=== PATIENT | female | born 1975 | race Caucasian/White ===

== ENCOUNTER 2017-05-14 13:00 | Inpatient (IN) | payer BC, OTHER ==
[2017-05-14 13:51] LABS: BASOPHIL 0.5 % (0-2.0); MCH 31.1 pg (25.7-33.7); MCHC 34.2 g/dl (32.0-36.0); MEAN PLT VOLUME 9.4 fl (7.5-11.1); NEUTROPHILS 78.7 % (42.8-82.8); PLATELET COUNT 207 K/MM3 (134-434); RDW 13.3 % (11.6-15.6); WHITE BLOOD COUNT 10.3 K/mm3 (4.0-10.0)
[2017-05-14 14:06] LABS: ALBUMIN 2.3 g/dl (3.4-5.0); ALK PHOS 134 U/L (45-117); ANION GAP 12 (8-16); BILIRUBIN,TOTAL 0.4 mg/dL (0.2-1.0); CO2 21 mmol/L (21-32); CREATININE 0.6 mg/dL (0.55-1.02); GLUCOSE,RANDOM 144 mg/dL (74-106); SGOT/AST 14 U/L (15-37); SGPT/ALT 13 U/L (12-78); TOT PROT 5.4 g/dl (6.4-8.2); URIC ACID 3.4 mg/dL (2.6-7.2)
[2017-05-14 14:31] LABS: URINE APPEARANCE SLCLOUDY; URINE BILIRUBIN NEGATIVE (NEGATIVE); URINE BLOOD NEGATIVE (NEGATIVE); URINE COLOR YELLOW; URINE GLUCOSE (UA) NEGATIVE (NEGATIVE); URINE KETONE TRACE (NEGATIVE); URINE LEUK ESTERASE NEGATIVE (NEGATIVE); URINE NITRITE NEGATIVE (NEGATIVE); URINE PROTEIN NEGATIVE (NEGATIVE); URINE UROBILINOGEN NEGATIVE mg/dL (0.2-1.0)
[2017-05-14 14:45] VITALS: BMI 31.3
[2017-05-14] MEDS ORDERED: TUBERCULIN PPD 5 TU/0.1ML SYRINGE (IN PATIENT USE ONLY) ID ONE (15:44)
[2017-05-14] MEDS ORDERED: DINOPROSTONE 10 MG VAGINAL SUPPOSITORY VG ONE (16:07)
--- NOTE | 2017-05-14 16:11 | PN ---
Progress Note (short form) - Note Progress Note: cx closed vx -3 mi , fhr cat 1 , no contraction, cervidil rba discussed . cervidil inserted at 415 pm
--- NOTE | 2017-05-14 16:17 | HP ---
Past Medical History - Primary Care Physician PCP:: Dieudonne Galvin - Admission Chief Complaint: 40.2 weeks,gestational HTN, AMA, obesity History of Present Illness: 41 yo f g 1 po with gestational HTN, obesity, hypothyroidism, AMA. referred by DR Talavera for cervidil induction, no pain, no head ache or blurred vision . rba to cervidil discussed History Source: Patient Limitations to Obtaining History: No Limitations - Past Medical History ...: 2 ...Para: 0 ...Term: 0 ...: 0 ...Spon : 1 ...Induced : 0 ...Multiple Gestation: 0 ...EDC by Sono: 05/12/17 Additional OB History: one spont ab Endocrine: Yes: Hypothyroidism - Past Surgical History Hx Myomectomy: No Hx Transabdominal Cerclage: No - Smoking History Smoking history: Former smoker Have you smoked in the past 12 months: No Aproximately how many cigarettes per day: 10 If you are a former smoker, when did you quit?: 1 MELISSA AGO - Alcohol/Substance Use Hx Alcohol Use: No - Social History Usual Living Arrangement: Yes: With Spouse History of Recent Travel: No Home Medications - Allergies Allergies/Adverse Reactions: Allergies Allergy/AdvReac Type Severity Reaction Status Date / Time erythromycin lactobionate Allergy Vomiting Verified 05/14/17 13:56 [From Erythrocin] - Home Medications Home Medications: Ambulatory Orders Levothyroxine [Synthroid -] 1 tab PO DAILY 05/14/17 Vit #108/Iron/FA [ One Tablet] 1 tab PO DAILY 05/14/17 Vitamin D - 1 tab PO DAILY 05/14/17 Review of Systems - Review of Systems Constitutional: reports: No Symptoms Eyes: reports: No Symptoms HENT: reports: No Symptoms Neck: reports: No Symptoms Cardiovascular: reports: No Symptoms Respiratory: reports: No Symptoms Gastrointestinal: reports: No Symptoms Genitourinary: reports: No Symptoms Breasts: reports: No Symptoms Reported Musculoskeletal: reports: No Symptoms Integumentary: reports: No Symptoms Physical Exam - Maternity Vital Signs: Vital Signs Temperature 98.1 F 05/14/17 13:48 Pulse Rate 99 H 05/14/17 15:00 Respiratory Rate 05/14/17 15:00 Blood Pressure 124/96 05/14/17 15:00 O2 Sat by Pulse Oximetry (%) - Labs Lab Results: CBC, BMP 05/14/17 13:25 05/14/17 13:25 Hemorrhage Risk Assessment - Risk Factors High Risk Factors: Yes: None Risk Score: 0 Risk Level: Low Risk Problem List - Problems (1) Post term over 40 weeks Code(s): O48.0 - POST-TERM (2) Gestational hypertension Code(s): O13.9 - GESTATIONAL HTN W/O SIGNIFICANT PROTEINURIA, UNSP TRIMESTER Qualifiers: Trimester: third trimester Qualified Code(s): O13.3 - Gestational [ -induced] hypertension without significant proteinuria, third trimester (3) Advanced maternal age during Code(s): [id number] - (4) Hypothyroidism Code(s): E03.9 - HYPOTHYROIDISM, UNSPECIFIED Qualifiers: Hypothyroidism type: unspecified Qualified Code(s): E03.9 - Hypothyroidism, unspecified Assessment/Plan admit forcervidil induction , rba discussed
[2017-05-14 17:25] LABS: INR 0.87 (0.82-1.09); PROTHROMBIN TIME (PATIENT) 9.5 SEC (9.98-11.88)
[2017-05-14 17:27] LABS: ACTIVATED PTT 29.7 SECONDS (26.9-34.4)
[2017-05-14] MEDS ORDERED: PROMETHAZINE HCL 25 MG/1 ML VIAL IVPUSH ONE (21:23)
[2017-05-14] MEDS ORDERED: BUTORPHANOL TARTRATE 1 MG/ML VIAL IVPUSH PRN (21:23)
[2017-05-15] MEDS ORDERED: DEXTROSE 5%-LACTATED RINGERS 1,000 ML IV ONE (05:05)
[2017-05-15] MEDS ORDERED: LEVOTHYROXINE NA 25 MCG TABLET (FP) PO SCH (07:00)
[2017-05-15] MEDS ORDERED: OXYTOCIN 15 UNITS/ LR 250 ML 250 ML IVPB SCH (08:30)
--- NOTE | 2017-05-15 08:48 | PN ---
Progress Note (short form) - Note Progress Note: cx closed 50 vx , -3 mi, fht cat 1, irregulat contraction, pitocin rba discussed , agreed Problem List - Problems (1) Post term over 40 weeks Code(s): O48.0 - POST-TERM (2) Gestational hypertension Code(s): O13.9 - GESTATIONAL HTN W/O SIGNIFICANT PROTEINURIA, UNSP TRIMESTER Qualifiers: Trimester: third trimester Qualified Code(s): O13.3 - Gestational [ -induced] hypertension without significant proteinuria, third trimester (3) Advanced maternal age during Code(s): [id number] - (4) Hypothyroidism Code(s): E03.9 - HYPOTHYROIDISM, UNSPECIFIED Qualifiers: Hypothyroidism type: unspecified Qualified Code(s): E03.9 - Hypothyroidism, unspecified
[2017-05-15] MEDS: ELECTROLYTE-148 SOLN 1,000 ML IV SCH ×2 (12:00→18:12)
--- NOTE | 2017-05-15 18:01 | PN ---
Progress Note (short form) - Note Progress Note: 41 yo P0 @ 40.2wks induced due to gestational HTN, obesity, hypothyroidism, AMA, she had no complains of FHR 140s Category 1, + accelerations, No decelerations TOCO Q2=3min contractions VE: L/C/P Currently on 18mU/min Pitocin Further options discussed with patient: rest with possibly using another Prostaglandin if contractions resolve vs. continuing further with Pitocin Patient declines further LUL, requesting c/s Risks of c/section including bowel, bladder, vessels injury, greater blood loss discussed with patient She fully understands, consent signed anethesia aware IV Abx for wound infection prophylaxis
[2017-05-15] MEDS ORDERED: CITRIC ACID/SODIUM CITRATE 30 ML UNIT-DOSE CUP PO ONE (18:32)
[2017-05-15] MEDS ORDERED: ONDANSETRON 4 MG/2 ML VIAL IVPB PRN (21:14)
[2017-05-15] MEDS ORDERED: WITCH HAZEL 50% (TUCKS) 40 PAD/JAR PAD TP PRN (21:25)
[2017-05-15] MEDS ORDERED: METHYLERGONOVINE MALEATE 0.2 MG/1 ML AMP IM PRN (21:25)
[2017-05-15] MEDS ORDERED: IBUPROFEN 800 MG/8 ML IJ IVPB PRN (21:25)
[2017-05-15] MEDS ORDERED: BENZOCAINE 20% 57 GM BOTTLE TP PRN (21:25)
[2017-05-15] MEDS ORDERED: diphenhydrAMINE HCL 25 MG CAPSULE (FP) PO PRN (21:25)
[2017-05-15] MEDS ORDERED: SIMETHICONE 80 MG TAB.CHEW (FP) PO PRN (21:25)
[2017-05-15] MEDS ORDERED: IBUPROFEN 600 MG TABLET (FP) PO PRN (21:25)
[2017-05-15] MEDS ORDERED: oxyCODONE HCL 5 MG TABLET PO PRN ×2 (21:25)
[2017-05-15] MEDS ORDERED: BENZOCAINE 28 GM HEMORRHOIDAL OINTMENT PR PRN (21:25)
[2017-05-15] MEDS ORDERED: OXYTOCIN 20 UNITS in 0.9% NS 1,000 ML IV SCH (21:30)
[2017-05-15] MEDS ORDERED: DEXTROSE 5%-LACTATED RINGERS 1,000 ML IV SCH (21:30)
--- NOTE | 2017-05-15 21:35 | OP ---
Operative Note - Note: Operative Date: 05/15/17 Pre-Operative Diagnosis: 41 yo P0 @ 40.2 wks failed induction, gestational HTN, AMA, obesity, Hypothyrodism Operation: Primary Low Segment Transverse C/Section Findings: 1.Uterine inversion during placental delivery, likely due to delayed cord clamping and Cord blood collection I was able to reposition the uterus and repair in 2 layers without difficulty 2. Viable female APGARs 9/9, LOT position, 9.4lb 3. Normal maternal tubes and ovaries Post-Operative Diagnosis: Same as Pre-op Surgeon: Eboni Luther Zig Zag Stitcher: Zak Christy Anesthesia: Spinal Specimens Removed: Placenta. Viable female, APGARs 9/9, 9.4lb Estimated Blood Loss (mls): 1,000 Drains, Volume Out (mls): 100 Fluid Volume Replaced (mls): 1,500 Operative Report Dictated: Yes
--- NOTE | 2017-05-15 22:04 | PN ---
Delivery - Delivery Section: Primary, Low Flap Transverse Type of Anesthesia: Spinal Episiotomy/Laceration: None EBL (cc): 1,000 Delivery, Single - Stages of Labor Date 1st Stage Initiatied: 05/15/17 Date of Delivery: 05/15/17 Time of Delivery: 19:59 Date Placenta Delivered: 05/15/17 Time Placenta Delivered: 20:02 Placenta: Yes: Uterine Exploration (Uterine inversion) - Condition of Infant Cloak Room Attendant/Pharmaceutical Salesperson Present: Yes Name: Otto Choi Infant Gender: Female Weight: 9 lb 4 oz Position: Left, OT Total Hours ROM (Hrs/Mins): 3m - 1 Minute Total Score: 9 5 Minutes Total Score: 9 - [place] Feeding Plan Initial Plan: Exclusive throughout hospitalization Remarks - Remarks Remarks: See Op Note
[2017-05-15 23:33] LABS: BASOPHIL 0.2 % (0-2.0); EOSINOPHIL 0.2 % (0-4.5); MCH 30.8 pg (25.7-33.7); MCHC 33.6 g/dl (32.0-36.0); MEAN CELL VOLUME 91.7 fl (80-96); MEAN PLT VOLUME 9.2 fl (7.5-11.1); NEUTROPHILS 83.2 % (42.8-82.8); PLATELET COUNT 201 K/MM3 (134-434); RDW 13.2 % (11.6-15.6); WHITE BLOOD COUNT 11.9 K/mm3 (4.0-10.0)
[2017-05-16 00:02] LABS: ALK PHOS 112 U/L (45-117); ANION GAP 10 (8-16); BILIRUBIN,TOTAL 0.6 mg/dL (0.2-1.0); CALCIUM 8.5 mg/dL (8.5-10.1); CO2 24 mmol/L (21-32); CREATININE 0.6 mg/dL (0.55-1.02); GLUCOSE,RANDOM 91 mg/dL (74-106); SGOT/AST 16 U/L (15-37); SGPT/ALT 10 U/L (12-78); TOT PROT 4.7 g/dl (6.4-8.2)
[2017-05-16 00:35] LABS: FREE T4 1.08 ng/dl (0.76-1.46); THYROID STIMULATING HORMONE 3.47 uIU/ml (0.358-3.74)
[2017-05-16] MEDS: CEFAZOLIN (PRE-DOCKED) 50 ML IVPB SCH ×3 (02:00→17:49)
[2017-05-16] MEDS ORDERED: CEFAZOLIN 1 GM/D5W 50 ML IVPB SCH (02:00)
--- NOTE | 2017-05-16 08:05 | PN ---
Post Progress Note - Subjective Subjective: 41 yo P1 now, s/p 1 LST c/s phillip failed induction induced for gestational HTN at term, obesity, Hypothyroidism denies MELTON, visual disturbance, pain well controlled, no flatus yet No palpitations, no dizziness attempting BF Post Day: 1 Type of Delivery: Primary C/S Vital Signs: Vital Signs Temperature 98.0 F 05/16/17 06:00 Pulse Rate 90 05/16/17 06:00 Respiratory Rate 18 05/16/17 06:00 Blood Pressure 134/85 05/16/17 06:00 O2 Sat by Pulse Oximetry (%) 100 05/15/17 23:15 Breast Exam: Yes: Soft Uterus: Yes: Fundus Firm Incision: Yes: Dressing dry and intact Abdomen/GI: Yes: Abdomen soft Lochia: Yes: Rubra Lochia, amount: Small Extremities: Yes: Calves non-tender - Labs Labs: CBC WBC 11.9 K/mm3 (4.0-10.0) H 05/15/17 23:10 RBC 3.76 M/mm3 (3.60-5.2) 05/15/17 23:10 Hgb 11.6 GM/dL (10.7-15.3) D 05/15/17 23:10 Hct 34.5 % (32.4-45.2) 05/15/17 23:10 MCV 91.7 fl (80-96) 05/15/17 23:10 MCH 30.8 pg (25.7-33.7) 05/15/17 23:10 MCHC 33.6 g/dl (32.0-36.0) 05/15/17 23:10 RDW 13.2 % (11.6-15.6) 05/15/17 23:10 Plt Count 201 K/MM3 (134-434) 05/15/17 23:10 MPV 9.2 fl (7.5-11.1) 05/15/17 23:10 Neutrophils % 83.2 % (42.8-82.8) H 05/15/17 23:10 Lymphocytes % 10.9 % (8-40) D 05/15/17 23:10 Monocytes % 5.5 % (3.8-10.2) 05/15/17 23:10 Eosinophils % 0.2 % (0-4.5) 05/15/17 23:10 Basophils % 0.2 % (0-2.0) 05/15/17 23:10 Retic Count 1.59 % (0.5-1.5) H 05/14/17 13:25 Haptoglobin 100 mg/dL (34-200) 05/14/17 13:25 Assessment/Plan 41yo P 1 s/p 1 LST c/s mild PPH, uterine inversion VSS, Afibrire, h/h stable overnight TSH normal no need for Synthroid now Now s/s of PEC, BPs wnl cont. routine PP care [place] ambulation
[2017-05-16 08:34] LABS: BASOPHIL 0.4 % (0-2.0); EOSINOPHIL 0.6 % (0-4.5); MCH 30.9 pg (25.7-33.7); MCHC 33.8 g/dl (32.0-36.0); MEAN CELL VOLUME 91.4 fl (80-96); MEAN PLT VOLUME 8.9 fl (7.5-11.1); NEUTROPHILS 73.1 % (42.8-82.8); PLATELET COUNT 178 K/MM3 (134-434); RDW 13.3 % (11.6-15.6); WHITE BLOOD COUNT 8.9 K/mm3 (4.0-10.0)
[2017-05-16] MEDS ORDERED: DIPHTH,PERTUSS(ACELL),TET 0.5 ML DISP.SYRIN IM ONE (10:00)
[2017-05-16] MEDS: ELECTROLYTE-148 SOLN 1,000 ML IV SCH (18:24)
[2017-05-16] MEDS ORDERED: NIFEdipine E.R. 30 MG TABLET (FP) PO ONE (20:00)
[2017-05-16] MEDS ORDERED: BISACODYL 10 MG SUPP.RECT RC PRN (21:25)
--- NOTE | 2017-05-17 07:33 | PN ---
Progress Note (short form) - Note Progress Note: PATIENT IS STATUS POST PRIMARY C SECTION POST OP DAY ONE PATIENT RECEIVED SPINAL ANESTHESIA WITH DURAMORPH FOR POST OP PAIN CONTROL SHE IS IN ACUTE DISTRESS, PAIN UNDER CONTROL, MOTOR BLOCKADE HAS SUBSIDED, NO FURTHER INTERVENTIONS BY THE ANESTHESIOLOGY DEPT
[2017-05-17 08:23] LABS: BASOPHIL 0.4 % (0-2.0); EOSINOPHIL 0.9 % (0-4.5); MCH 31.7 pg (25.7-33.7); MCHC 34.6 g/dl (32.0-36.0); MEAN CELL VOLUME 91.7 fl (80-96); MEAN PLT VOLUME 9.1 fl (7.5-11.1); NEUTROPHILS 83.2 % (42.8-82.8); PLATELET COUNT 211 K/MM3 (134-434); RDW 13.1 % (11.6-15.6); WHITE BLOOD COUNT 11.3 K/mm3 (4.0-10.0)
[2017-05-17 08:48] LABS: ALBUMIN 2.1 g/dl (3.4-5.0); ANION GAP 8 (8-16); BILIRUBIN,DIRECT 0.2 mg/dL (0.0-0.2); CALCIUM 8.8 mg/dL (8.5-10.1); CO2 24 mmol/L (21-32); CREATININE 0.4 mg/dL (0.55-1.02); GLUCOSE,RANDOM 84 mg/dL (74-106); SGOT/AST 24 U/L (15-37); SGPT/ALT 15 U/L (12-78)
[2017-05-17 08:50] LABS: ALK PHOS 111 U/L (45-117); BILIRUBIN,TOTAL 0.4 mg/dL (0.2-1.0); TOT PROT 4.9 g/dl (6.4-8.2)
[2017-05-17] MEDS: NIFEdipine E.R. 30 MG TABLET (FP) PO SCH (12:00)
--- NOTE | 2017-05-17 14:18 | PN ---
Post Progress Note - Subjective Subjective: 41 yo P1 now, s/p 1' C/S No complains: no MELTON, No visual changes, no RUQ pain, + flatus, incisional pain controlled Post Day: 2 Type of Delivery: Primary C/S Vital Signs: Vital Signs Temperature 98.8 F 05/17/17 13:53 Pulse Rate 100 H 05/17/17 13:53 Respiratory Rate 18 05/17/17 13:53 Blood Pressure 141/96 05/17/17 13:53 O2 Sat by Pulse Oximetry (%) 100 05/15/17 23:15 Breast Exam: Yes: Soft Uterus: Yes: Fundus Firm, Fundus @ umbilicus, Non-tender Incision: Yes: Sutures intact Abdomen/GI: Yes: Abdomen soft Lochia: Yes: Rubra Lochia, amount: Small Extremities: Yes: Calves non-tender - Labs Labs: CBC WBC 11.3 K/mm3 (4.0-10.0) H 05/17/17 07:30 RBC 3.57 M/mm3 (3.60-5.2) L 05/17/17 07:30 Hgb 11.3 GM/dL (10.7-15.3) 05/17/17 07:30 Hct 32.7 % (32.4-45.2) 05/17/17 07:30 MCV 91.7 fl (80-96) 05/17/17 07:30 MCH 31.7 pg (25.7-33.7) 05/17/17 07:30 MCHC 34.6 g/dl (32.0-36.0) 05/17/17 07:30 RDW 13.1 % (11.6-15.6) 05/17/17 07:30 Plt Count 211 K/MM3 (134-434) 05/17/17 07:30 MPV 9.1 fl (7.5-11.1) 05/17/17 07:30 Neutrophils % 83.2 % (42.8-82.8) H 05/17/17 07:30 Lymphocytes % 9.3 % (8-40) D 05/17/17 07:30 Monocytes % 6.2 % (3.8-10.2) 05/17/17 07:30 Eosinophils % 0.9 % (0-4.5) 05/17/17 07:30 Basophils % 0.4 % (0-2.0) 05/17/17 07:30 Retic Count 1.59 % (0.5-1.5) H 05/14/17 13:25 Haptoglobin 100 mg/dL (34-200) 05/14/17 13:25 Assessment/Plan 41yo P 1 s/p 1 LST c/s mild PPH, uterine inversion VSS, Afibrire, h/h stable TSH normal no need for Synthroid now Will repeat TSH 6wks PP No s/s of PEC, BPs wnl on Procardia 30mg cont. routine PP care [place] ambulation
[2017-05-17] MEDS: SENNOSIDES/DOCUSATE COMBO (SENNA PLUS) TABLET (UD) PO PRN (21:42)
[2017-05-18 07:49] LABS: BASOPHIL 0.5 % (0-2.0); EOSINOPHIL 2.2 % (0-4.5); MCH 31.2 pg (25.7-33.7); MCHC 34.2 g/dl (32.0-36.0); MEAN CELL VOLUME 91.3 fl (80-96); MEAN PLT VOLUME 8.2 fl (7.5-11.1); NEUTROPHILS 74.9 % (42.8-82.8); PLATELET COUNT 206 K/MM3 (134-434); RDW 13.1 % (11.6-15.6); WHITE BLOOD COUNT 8.7 K/mm3 (4.0-10.0)
--- NOTE | 2017-05-18 08:34 | PN ---
Post Progress Note - Subjective Subjective: 41 yo P1 s/p 1' c/section doing well, no MELTON, no visual changes Post Day: 3 Type of Delivery: Primary C/S Vital Signs: Vital Signs Temperature 98.1 F 05/17/17 22:00 Pulse Rate 83 05/18/17 06:00 Respiratory Rate 18 05/18/17 06:00 Blood Pressure 132/93 05/18/17 06:00 O2 Sat by Pulse Oximetry (%) 100 05/15/17 23:15 Breast Exam: Yes: Soft Uterus: Yes: Fundus Firm, Fundus above umbilicus Incision: Yes: Sutures intact Abdomen/GI: Yes: Abdomen soft Lochia: Yes: Rubra Lochia, amount: Small Extremities: Yes: Calves non-tender - Labs Labs: CBC WBC 8.7 K/mm3 (4.0-10.0) 05/18/17 07:18 RBC 3.34 M/mm3 (3.60-5.2) L 05/18/17 07:18 Hgb 10.4 GM/dL (10.7-15.3) L 05/18/17 07:18 Hct 30.5 % (32.4-45.2) L 05/18/17 07:18 MCV 91.3 fl (80-96) 05/18/17 07:18 MCH 31.2 pg (25.7-33.7) 05/18/17 07:18 MCHC 34.2 g/dl (32.0-36.0) 05/18/17 07:18 RDW 13.1 % (11.6-15.6) 05/18/17 07:18 Plt Count 206 K/MM3 (134-434) 05/18/17 07:18 MPV 8.2 fl (7.5-11.1) 05/18/17 07:18 Neutrophils % 74.9 % (42.8-82.8) 05/18/17 07:18 Lymphocytes % 15.3 % (8-40) D 05/18/17 07:18 Monocytes % 7.1 % (3.8-10.2) 05/18/17 07:18 Eosinophils % 2.2 % (0-4.5) D 05/18/17 07:18 Basophils % 0.5 % (0-2.0) 05/18/17 07:18 Retic Count 1.59 % (0.5-1.5) H 05/14/17 13:25 Haptoglobin 100 mg/dL (34-200) 05/14/17 13:25 Assessment/Plan 41yo P 1 s/p 1 LST c/s mild PPH, uterine inversion VSS, Afibrire, h/h stable TSH normal no need for Synthroid now Will repeat TSH 6wks PP No s/s of PEC, BPs wnl on Procardia 30mg cont. routine PP care [place] ambulation
--- NOTE | 2017-05-18 09:16 | OP ---
DATE OF OPERATION: 05/15/2017 PREOPERATIVE DIAGNOSIS: A 41-year-old para 0 at 40 weeks, failed induction, gestational hypertension, advanced maternal age, obesity, and hypothyroidism. POSTOPERATIVE DIAGNOSIS: A 41-year-old para 0 at 40 weeks, failed induction, gestational hypertension, advanced maternal age, obesity, hypothyroidism, and hemorrhage. OPERATION: Primary low segment transverse section. FINDINGS: Viable female, Apgars 9 and 9, left occipitotransverse position, 9 pounds 4 ounces. Normal maternal tubes and ovaries, and uterine inversion during placental delivery likely due to delayed cord clamping and cord blood collection. SURGEON: Eboni Luther MD SHAMPOO TECHNICIAN: ELAINE Williamson ANESTHESIA: Spinal. SPECIMENS REMOVED: Placenta and viable female, Apgars 9 and 9, 9.4 pounds. DESCRIPTION OF THE OPERATIVE PROCEDURE: After showing informed consent, patient was brought to the operating room, placed in dorsal supine position with left lateral tilt. Pfannenstiel incision was made with scalpel, carried down to the level of fascia with Bovie cautery. Fascia incised in the midline and incision carried down bilaterally with Bovie cautery with undermining with Ivet clamps. Kochers were placed inferiorly on the fascial incision, and fascia was dissected downwards with Bovie cautery. Same was accomplished superiorly. Fascia was dissected off the rectus abdominis muscle. Rectus abdominis muscle was split in the midline. Peritoneum was entered bluntly with good visualization of underlying organs. Peritoneum was stretched and retracted with lower edge of the Jeannie. The bladder flap was created with Metzenbaum scissors and retracted with lower edge of the Jeannie. Uterine incision was made with the scalpel and extended bilaterally with bandage scissors. Infant's head delivered atraumatically in left occipitotransverse position. Rest of the body delivered atraumatically. Baby suctioned. Delayed cord clamping was conducted and baby was handed to awaiting pediatricians. Subsequently, the cord blood was collected as per patient's request, and subsequently placenta was attempted to be delivered; however, uterus inverted together with the placenta. Uterus was fitted back inwards and placenta was delivered. Uterine incision was closed without any difficulty in 2 layers of 0 Biosyn, first locking, second imbricating. Uterus was replaced intraabdominally. Excellent hemostasis was noted. Peritoneum was closed with 0 Biosyn. Muscle was reapproximated at the midline with 0 Biosyn. Fascia was closed with 0 Vicryl. The subcutaneous space was closed with 2-0 chromic, and skin was closed with 4-0 Biosyn subcuticular stitch. Estimated blood loss was 1000 mL. Patient drained 100 mL of urine and received 1500 mL of Plasmalyte. Inder [id number]
[2017-05-18] MEDS: NIFEdipine E.R. 30 MG TABLET (FP) PO SCH (10:04)
[2017-05-18] MEDS: SENNOSIDES/DOCUSATE COMBO (SENNA PLUS) TABLET (UD) PO PRN (21:41)
--- NOTE | 2017-05-19 06:01 | DS ---
Physical Exam-RELATIONSHIP CONSULTANT Vital Signs: Vital Signs Temperature 98.1 F 05/18/17 23:00 Pulse Rate 87 05/18/17 23:00 Respiratory Rate 18 05/18/17 23:00 Blood Pressure 129/86 05/18/17 23:00 O2 Sat by Pulse Oximetry (%) 100 05/15/17 23:15 Constitutional: Yes: Well Nourished Eyes: Yes: WNL HENT: Yes: WNL Neck: Yes: WNL Cardiovascular: Yes: Regular Rate and Rhythm Respiratory: Yes: CTA Bilaterally Gastrointestinal: Yes: Normal Bowel Sounds, Soft External Genitalia: Yes: Normal Vaginal Exam: Yes: Normal Uterus: Yes: Firm ....Post : Yes: Uterus non-tender Breast(s): Yes: WNL Musculoskeletal: Yes: WNL Extremities: Yes: WNL Wound/Incision: Yes: Well Approximated Neurological: Yes: WNL ...Motor Strength: WNL Labs: CBC, BMP 05/18/17 07:18 05/17/17 07:30 Delivery - Delivery Section: Primary, Low Flap Transverse Type of Anesthesia: Spinal Episiotomy/Laceration: None EBL (cc): 1,000 Delivery, Single - Stages of Labor Date 1st Stage Initiatied: 05/15/17 Date of Delivery: 05/15/17 Time of Delivery: 19:59 Time Placenta Delivered: 20:02 Placenta: Yes: Uterine Exploration (Uterine inversion) - Condition of Sales Planning Coordinator/Machine Filler Shredder Present: Yes Name: Otto Choi Infant Gender: Female Weight: 9 lb 4 oz Position: Left, OT Total Hours ROM (Hrs/Mins): 3m - 1 Minute Total Score: 9 5 Minutes Total Score: 9 - Feeding Plan Initial Plan: Exclusive throughout hospitalization Discharge Summary Reason For Visit: ADMIT LABOR Current Active Problems Advanced maternal age during (Acute) Gestational hypertension (Acute) Hypothyroidism (Acute) Post term over 40 weeks (Acute) Condition: Good - Instructions Diet, Activity, Other Instructions: Physical activity Resume your normal everyday activity as tolerated no heavy lifting or exercise until seen by your surgeon. You may walk unlimited calderon of and climb stairs. You may resume driving the car when you feel safe and comfortable behind the wheel. No sexual activity as instructed. Wound care If you have a bandage, leave it on, and keep dry for 48-72 hours. After that time discard the outer bandage. If they are tapes on the skin under the out of bandage leave them in place. They will peel off in the next 7 to 10 days. Do Not Peel them off. You may shower the day after surgery. If there are tapes present on the skin, you may shower over them. Diet There are no dietary restrictions. Eat healthy, high-fiber foods. Drink 6 to 8 glasses of liquid each day. This will assist in keeping your bowels are regular. Pain management You may take Tylenol or acetaminophen or Ibuprofen (for example, Motrin, Advil etc.) from my pain prescription medication is ordered should be taken as prescribed for moderate to severe pain. Call MD for any of the following: Severe pain not relieved by medication Fever of 101 or higher Excessive bleeding or drainage on dressing Inability to urinate Referrals: Aaron Talavera MD [Staff Physician] - Disposition: HOME - Home Medications Comprehensive Discharge Medication List: Ambulatory Orders Levothyroxine [Synthroid -] 1 tab PO DAILY 05/14/17 Vit #108/Iron/FA [ One Tablet] 1 tab PO DAILY 05/14/17 Vitamin D - 1 tab PO DAILY 05/14/17
[2017-05-19 06:34] VITALS: PULSE 89
[2017-05-19] MEDS ORDERED: ACETAMINOPHEN 325 MG TABLET (FP) ONE (08:06)
[2017-05-19] MEDS ORDERED: ACETAMINOPHEN 325 MG TABLET (FP) PO ONE (08:09)
[2017-05-19] MEDS: NIFEdipine E.R. 30 MG TABLET (FP) PO SCH (10:19)
[2017-05-19 11:36] VITALS: BP 135/93; TEMP 98.3
== END 2017-05-19 18:10 | disposition home or self-care (01) | DRG 766 ==
LOC: JDEL 13:00 → JLDR 13:35 → J3W 05-16 00:30
PROVIDERS: ADMIT Obstetrics & Gynecology; ATTEND Obstetrics & Gynecology
PROC: 3E0P7GC Introduction of Other Therapeutic Substance into Female Reproductive, Via Natural or Artificial Opening (ICD-10-PCS; 2017-05-14)
PROC: 10D00Z1 Extraction of Products of Conception, Low, Open Approach (ICD-10-PCS; principal; 2017-05-15)
DX: O13.4 Gestational [pregnancy-induced] hypertension without significant proteinuria, complicating childbirth (principal); O48.0 Post-term pregnancy; O61.8 Other failed induction of labor; O99.284 Endocrine, nutritional and metabolic diseases complicating childbirth; E03.8 Other specified hypothyroidism; O99.214 Obesity complicating childbirth; E66.8 Other obesity; Z68.31 Body mass index [BMI] 31.0-31.9, adult; O72.1 Other immediate postpartum hemorrhage; Z3A.40 40 weeks gestation of pregnancy; Z37.0 Single live birth
CPT/HCPCS: 36415; 80053; 80076; 81003; 82977; 83010; 84439; 84443; 84550; 85025; 85044; 85610; 85730; 86593; 86803; 86850; 86900; 86901; 90715

== ENCOUNTER 2019-09-04 09:13 | Emergency (ER) | payer BC, OTHER ==
--- NOTE | 2019-09-04 09:14 | PDOC ---
History of Present Illness - General Chief Complaint: Nausea/Vomiting Stated Complaint: NAUSEA/VOMITING Time Seen by Provider: 09/04/19 09:14 History Source: Patient Exam Limitations: No Limitations - History of Present Illness Initial Comments: 44 year old female with PMH chronic headaches (1-2 per month) presented to ED for nausea/vomiting since 0100 last night. Pt reported she ate kristan salad last night prior to development of her symptoms. She admitted to left sided gradually progressing headache since yesterday, similar to prior headaches, but a little stronger in intensity today. She reported mild bilateral anterior rib pain after vomiting she believes is 2/2 to vomiting. She denied fever, diarrhea , back pain, chest pain, shortness of breath, weakness, numbness, tingling, visual changes, gait changes. She reported she returned from [place] x3 days ago. ROS General: denied fever, chills, generalized weakness. HEENT: denied sore throat, rhinorrhea, ear pain. Cardiovascular: denied chest pain, palpitations, syncope, diaphoresis. Respiratory: denied shortness of breath, cough, sputum production, hemoptysis. Gastrointestinal: admitted to abdominal pain, nausea, vomiting. denied diarrhea , constipation, blood in stool. Genitourinary: denied dysuria, increased urinary frequency, hematuria, urinary incontinence, flank pain. Back: denied back pain. Musculoskeletal: denied joint pain, muscle pain, joint swelling. Neurological: admitted to headache. denied dizziness, numbness, tingling, weakness. Integumentary: denied rash, laceration, abrasion. Hematologic/Lymphatic: denied bruising or bleeding. PE Constitutional: Well-nourished, Well-developed, appearing stated age. HEENT: head is normocephalic, atraumatic. EOMI. PERRLA. Neck: supple. Full ROM. Cardiovascular: regular heart rhythm. no murmurs. no pericardial friction rub. Respiratory: clear to auscultation bilaterally. no crackles, rhonchi or wheezing. no stridor. Gastrointestinal: soft, nontender. normal bowel sounds. no rebound, guarding, masses. Extremities: peripheral pulses intact. no lower extremity edema. Neurological: CN 2-12 grossly intact. moves all four extremities. Psych: awake, alert, oriented x3. follows commands. answers questions appropriately. Past History - Past Medical History Allergies/Adverse Reactions: Allergies Allergy/AdvReac Type Severity Reaction Status Date / Time erythromycin lactobionate Allergy Vomiting Verified 09/04/19 09:14 [From Erythrocin] Home Medications: Ambulatory Orders Ondansetron [Zofran Odt -] 4 mg SL TID #9 od.tablet 09/04/19 - Psycho Social/Smoking Cessation Hx Smoking History: Former smoker Number of Cigarettes Smoked Daily: 10 If you are a former smoker, when did you quit?: 1 MELISSA AGO 'Breaking Loose' booklet given: 07/05/15 Substance Use Type: None ED Treatment Course - LABORATORY CBC & Chemistry Diagram: 09/04/19 09:56 09/04/19 09:56 Medical Decision Making - Medical Decision Making 44 year old female with above PMH presented to ED for nausea/vomiting since 99 associated with headache. Initial Vital Signs Temp Pulse Resp BP Pulse Ox 98.2 F 77 18 109/72 100 09/04/19 09:15 09/04/19 09:15 09/04/19 09:15 09/04/19 09:15 09/04/19 09:15 Afebrile. No tachycardia. No tachypnea. Normal BP for age. No hypoxia on room air. Labs ordered: CBC, CMP, urine , lipase Imaging ordered: none Medications ordered: reglan 10 mg IV once, tylenol 1000 mg IV once, pepcid 20 mg IV once EKG performed at 1016: rate 64, regular rhythm, normal axis, normal intervals, no acute ST changes. 09/04/19 11:10 Pt reported no improvement of headache. Pt reported resolution of nausea/ vomiting. Medications ordered: toradol 30 mg IV once 09/04/19 12:31 Laboratory Last Values WBC 7.1 K/mm3 (4.0-10.8) 09/04/19 09:56 RBC 4.61 M/mm3 (3.60-5.2) 09/04/19 09:56 Hgb 13.2 GM/dl (10.7-15.3) 09/04/19 09:56 Hct 41.1 % (32.4-45.2) 09/04/19 09:56 MCV 89.2 fl (80-96) 09/04/19 09:56 MCH 28.6 pg (25.7-33.7) 09/04/19 09:56 MCHC 32.1 g/dl (32.0-36.0) 09/04/19 09:56 RDW 13.1 % (11.6-15.6) 09/04/19 09:56 Plt Count 272 K/MM3 (134-434) 09/04/19 09:56 MPV 8.0 fl (7.5-11.1) 09/04/19 09:56 Absolute Neuts (auto) 6.3 K/mm3 09/04/19 09:56 Neutrophils % 89.3 % (42.8-82.8) H 09/04/19 09:56 Lymphocytes % 6.9 % (8-40) L 09/04/19 09:56 Monocytes % 2.2 % (3.8-10.2) L 09/04/19 09:56 Eosinophils % 1.4 % (0-4.5) 09/04/19 09:56 Basophils % 0.2 % (0-2.0) 09/04/19 09:56 Sodium 139 mmol/L (136-145) 09/04/19 09:56 Potassium 4.0 mmol/L (3.5-5.1) 09/04/19 09:56 Chloride 111 mmol/L (98-107) H 09/04/19 09:56 Carbon Dioxide 22 mmol/L (21-32) 09/04/19 09:56 Anion Gap 5 MMOL/L (8-16) L 09/04/19 09:56 BUN 11.0 mg/dl (7-18) 09/04/19 09:56 Creatinine 0.6 mg/dl (0.55-1.3) 09/04/19 09:56 Est GFR (CKD-EPI)AfAm 130.30 09/04/19 09:56 Est GFR (CKD-EPI)NonAf 112.42 09/04/19 09:56 Random Glucose 94 mg/dl (74-106) 09/04/19 09:56 Calcium 8.6 mg/dL (8.5-10.1) 09/04/19 09:56 Magnesium 2.0 mg/dL (1.8-2.4) 09/04/19 11:30 Total Bilirubin 1.6 mg/dl (0.2-1) H 09/04/19 09:56 AST 22 U/L (15-37) 09/04/19 09:56 ALT 9 U/L (13-61) L 09/04/19 09:56 Alkaline Phosphatase 50 U/L (45-117) 09/04/19 09:56 Total Protein 6.3 g/dl (6.4-8.2) L 09/04/19 09:56 Albumin 3.7 g/dl (3.4-5.0) 09/04/19 09:56 Lipase 149 U/L (73-393) 09/04/19 09:56 Urine HCG, Qual Negative 09/04/19 09:56 No leukocytosis. No anemia. No BLAKE. No transaminitis. Lipase wnl. Electrolytes wnl. Pt reported improvement of headache. Pt advised to F/U with PCP promptly, take Zofran for N/V, given return precautions. Pt comfortable with plan for care. Pt discharged. Discharge - Discharge Information Problems reviewed: Yes Clinical Impression/Diagnosis: Nausea & vomiting, Headache Condition: Improved Disposition: HOME - Admission No - Additional Discharge Information Prescriptions: Ondansetron [Zofran Odt -] 4 mg SL TID #9 od.tablet - Follow up/Referral Referrals: Lane Hamm MD [Primary Care Provider] - - Patient Discharge Instructions Patient Printed Discharge Instructions: Love Diet, DI for Migraine, DI for Vomiting -- Adult Additional Instructions: Follow up with your primary care doctor within 3 days regarding your Emergency Room visit. Your care is not complete until you follow up. Take Tylenol over the counter for headache. Take as advised on label. Drink lots of gatorade/pedialyte throughout the day to stay hydrated and replace your electrolytes. I have sent a prescription to your pharmacy for Zofran, an anti-nausea medication. Use as advised on label as needed. Eat bland food for the next 24 hours - bread, rice, toast - to avoid irritating your stomach. Return to the Emergency Department for increasing pain, chest pain, shortness of breath, fever, palpitations, lightheadedness, continuous vomiting not resolved by Zofran, weakness, numbness, tingling or any other new, worsening or concerning symptoms. - Post Discharge Activity Work/Back to School Note: Back to Work
[2019-09-04 09:19] VITALS: BP 109/72; PULSE 77; TEMP 98.2; BMI 25.0
--- NOTE | 2019-09-04 09:23 | PDOC ---
Attending Attestation - Resident Resident Name: Emmanuelle Ag - ED Attending Attestation I have performed the following: I have examined & evaluated the patient, The case was reviewed & discussed with the resident, I agree w/resident's findings & plan, Exceptions are as noted - HPI HPI: 09/04/19 09:22 44y F no pmhx presents with complaint of n/v since around 1am. Patient states that she had krissy lettuce in the afternoon started vomiting the patient denies any fever, chills, abdominal pain, chest pain, shortness of breath, back pain, diarrhea, dysuria, melena. Patient states for vomiting was clear and had some food in it there was no blood or coffee-ground appearance. No known sick contacts the patient states that the solid was from a prepackaged make-your- own salad kit. Exam GENERAL: The patient is awake, alert, and fully oriented, Nontoxic - in no acute distress. HEAD: Normocephalic, atraumatic. ABDOMEN: Soft, nontender, No guarding, no rebound. No CVA tenderness EXTREMITIES: Normal range of motion, no edema. NEUROLOGICAL: No facial assymetry, Normal speech, moving all 4 ext spontaneously and symmetrically PSYCH: Normal mood, normal affect. SKIN: Warm, Dry, normal turgor, Suspect vomiting possible due to migraine vs enteritis no abdominal pain or tenderness to suggest Intra-abdominal surgical Infection. Suspect her headache is likely a migraine headache, We will treat her supportively. Will obtain blood work, will treat patient symptomatically with antiemetic, fluids, Tylenol Heart Score/ECG Review - ECG Impressions Comment:: 09/04/19 11:46 Twelve-lead EKG was performed and reviewed by me. There is normal sinus rhythm with a normal rate. Rate of 64 The axis is normal. The intervals are normal. There is normal R wave progression There are no ST or T wave abnormalities. Impression: Normal twelve-lead EKG
[2019-09-04] MEDS ORDERED: ACETAMINOPHEN 1000 MG/100 ML VIAL (NON FORMULARY) IVPB ONE (09:24)
[2019-09-04] MEDS ORDERED: SODIUM CHLORIDE 1,000 ML IV STA (09:24)
[2019-09-04] MEDS ORDERED: METOCLOPRAMIDE HCL INJECTION 10 MG/2 ML VIAL IVPUSH ONE (09:24)
[2019-09-04] MEDS ORDERED: FAMOTIDINE 20 MG/50 ML IVPB 20 MG/50 ML MG IVPB ONE (09:31)
[2019-09-04 10:11] LABS: BASO % 0.2 % (0-2.0); EOS % 1.4 % (0-4.5); HEMATOCRIT 41.1 % (32.4-45.2); HEMOGLOBIN 13.2 GM/dl (10.7-15.3); LYMPH % 6.9 % (8-40); MCH 28.6 pg (25.7-33.7); MCHC 32.1 g/dl (32.0-36.0); MEAN CELL VOLUME 89.2 fl (80-96); MONO % 2.2 % (3.8-10.2); NEUT % 89.3 % (42.8-82.8); PLATELET COUNT 272 K/MM3 (134-434); RBC 4.61 M/mm3 (3.60-5.2); RDW 13.1 % (11.6-15.6); WHITE BLOOD COUNT 7.1 K/mm3 (4.0-10.8)
[2019-09-04 10:42] LABS: ALBUMIN 3.7 g/dl (3.4-5.0); BILIRUBIN,TOTAL 1.6 mg/dl (0.2-1); CREATININE 0.6 mg/dl (0.55-1.3); TOT PROT 6.3 g/dl (6.4-8.2)
[2019-09-04] MEDS ORDERED: KETOROLAC TROMETHAMINE 30 MG/1 ML VIAL IVPUSH ONE (11:09)
[2019-09-04] MEDS ORDERED: SODIUM CHLORIDE 500 ML IV STA (11:17)
[2019-09-04 12:29] LABS: CALCIUM 8.6 mg/dL (8.5-10.1)
--- NOTE | 2019-09-04 13:36 | EKG ---
Test Reason : Blood Pressure : / mmHG Vent. Rate : 064 BPM Atrial Rate : 064 BPM P-R Int : 156 ms QRS Dur : 086 ms QT Int : 404 ms P-R-T Axes : 039 041 029 degrees QTc Int : 416 ms NORMAL SINUS RHYTHM NORMAL ECG NO PREVIOUS ECGS AVAILABLE Confirmed by MD Deneen, Sanjiv ([id number]) on 09/04/2019 1:36:11 PM Referred By: NILS Confirmed By:Sanjiv Brothers MD
== END 2019-09-04 12:59 | disposition home or self-care (01) ==
LOC: FER 09:13
PROC: 3E0333Z Introduction of Anti-inflammatory into Peripheral Vein, Percutaneous Approach (ICD-10-PCS; principal; 2019-09-04)
PROC: 3E033NZ Introduction of Analgesics, Hypnotics, Sedatives into Peripheral Vein, Percutaneous Approach (ICD-10-PCS; 2019-09-04)
PROC: 3E0337Z Introduction of Electrolytic and Water Balance Substance into Peripheral Vein, Percutaneous Approach (ICD-10-PCS; 2019-09-04)
PROC: 3E033GC Introduction of Other Therapeutic Substance into Peripheral Vein, Percutaneous Approach (ICD-10-PCS; 2019-09-04)
DX: R11.2 Nausea with vomiting, unspecified (principal); R51 Headache
CPT/HCPCS: 36415; 80053; 83690; 83735; 84703; 85025; 93005; 99285-25; J0131; J7030

== ENCOUNTER 2020-12-24 05:35 | Day surgery (SDC) | payer BC, OTHER ==
[2020-12-21 14:36] VITALS: BMI 28.3
[2020-12-24 09:54] LABS: INR 0.97 (0.83-1.09); PROTHROMBIN TIME (PATIENT) 11.9 SEC (9.7-13.0)
[2020-12-24 09:56] LABS: BASO % 0.4 % (0-2.0); EOS % 1.5 % (0-4.5); HEMATOCRIT 38.5 % (32.4-45.2); HEMOGLOBIN 13.3 GM/dL (10.7-15.3); LYMPH % 27.8 % (8-40); MCH 30.7 pg (25.7-33.7); MCHC 34.5 g/dl (32.0-36.0); MEAN CELL VOLUME 88.9 fl (80-96); MEAN PLT VOLUME 8.2 fl (7.5-11.1); MONO % 6.4 % (3.8-10.2); NEUT % 63.9 % (42.8-82.8); PLATELET COUNT 275 K/MM3 (134-434); RBC 4.33 M/mm3 (3.60-5.2); RDW 14.1 % (11.6-15.6); WHITE BLOOD COUNT 6.1 K/mm3 (4.0-10.0)
[2020-12-24 09:57] LABS: ACTIVATED PTT 29.2 SECONDS (25.2-36.5)
[2020-12-24 10:23] LABS: POTASSIUM 4.1 mmol/L (3.5-5.1)
[2020-12-24 10:25] LABS: ALBUMIN 3.3 g/dl (3.4-5.0); CALCIUM 9.5 mg/dL (8.5-10.1)
[2020-12-24 10:26] LABS: BLOOD UREA NITROGEN 6.9 mg/dL (7-18)
[2020-12-24 10:29] LABS: CREATININE 0.6 mg/dL (0.55-1.3)
[2020-12-24 10:30] LABS: BILIRUBIN,TOTAL 0.6 mg/dL (0.2-1); TOT PROT 6.5 g/dl (6.4-8.2)
[2020-12-24] MEDS ORDERED: PROPOFOL 20 ML ONE (13:14)
[2020-12-24] MEDS ORDERED: MIDAZOLAM HCL 2 MG/2 ML SINGLE DOSE VIAL ONE ×2 (13:15)
[2020-12-24] MEDS ORDERED: ceFAZolin SODIUM 1 GM VIAL IVPB ONE ×2 (13:21)
[2020-12-24 18:34] VITALS: BP 100/63; PULSE 78; TEMP 98
== END 2020-12-24 16:15 | disposition home or self-care (01) ==
LOC: JASU-SURG 05:35
PROVIDERS: ATTEND Obstetrics & Gynecology
PROC: 10D17ZZ Extraction of Products of Conception, Retained, Via Natural or Artificial Opening (ICD-10-PCS; principal; 2020-12-24 11:30)
DX: O02.1 Missed abortion (principal)
CPT/HCPCS: 36415; 80053; 85025; 85610; 85730; 86850; 86900; 86901; 88305-TC; 94760

== ENCOUNTER 2022-10-17 13:35 | Inpatient (IN) | payer BC, OTHER ==
[2022-10-17 14:58] LABS: HEMATOCRIT 35.9 % (32.4-45.2); HEMOGLOBIN 12.1 GM/dL (10.7-15.3); MCH 29.9 pg (25.7-33.7); MCHC 33.7 g/dl (32.0-36.0); MEAN CELL VOLUME 88.7 fl (80-96); MEAN PLT VOLUME 8.3 fl (7.5-11.1); PLATELET COUNT 251 10^3/uL (134-434); RBC 4.05 M/mm3 (3.60-5.2); RDW 13.5 % (11.6-15.6); WHITE BLOOD COUNT 8.4 K/mm3 (4.0-10.0)
[2022-10-17 15:02] LABS: EPI CELLS >36 /uL (0-25.1); HYALINE CASTS 2 /uL (0-3.1); URINE APPEARANCE CLOUDY; URINE BACTERIA 1226 /uL (0-1359); URINE BILIRUBIN NEGATIVE (NEGATIVE); URINE COLOR YELLOW; URINE GLUCOSE (UA) NEGATIVE (NEGATIVE); URINE KETONE NEGATIVE (NEGATIVE); URINE LEUK ESTERASE TRACE (NEGATIVE); URINE NITRITE NEGATIVE (NEGATIVE); URINE PROTEIN NEGATIVE (NEGATIVE); URINE UROBILINOGEN 0.2 mg/dL (0.2-1.0); URINE WBC 144 /uL (0-25.8)
[2022-10-17 15:06] LABS: URINE RBC 24 /uL (0-23.9)
[2022-10-17 15:22] LABS: ALBUMIN 2.4 g/dl (3.4-5.0); BLOOD UREA NITROGEN 4.1 mg/dL (7-18)
[2022-10-17 15:25] LABS: CREATININE 0.5 mg/dL (0.55-1.3); URIC ACID 3.1 mg/dL (2.6-7.2)
[2022-10-17 15:27] LABS: BILIRUBIN,TOTAL 0.4 mg/dL (0.2-1); TOT PROT 5.6 g/dl (6.4-8.2)
[2022-10-17] MEDS ORDERED: BETAMET ACET/BETAMET NA PH 30 MG/5 ML VIAL IM ONE (15:30)
[2022-10-17] MEDS ORDERED: BETAMET ACET/BETAMET NA PH 30 MG/5 ML VIAL ONE (15:35)
[2022-10-17] MEDS ORDERED: CITRIC ACID/SODIUM CITRATE 30 ML UNIT-DOSE CUP PO ONE (16:09)
[2022-10-17] MEDS ORDERED: ELECTROLYTE-148 SOLN 1,000 ML IV SCH (16:15)
[2022-10-17 17:25] VITALS: BMI 30.7
[2022-10-17] MEDS ORDERED: ePHEDrine SULFATE 50 MG/1 ML AMPULE ONE (17:35)
[2022-10-17] MEDS ORDERED: FENTANYL CITRATE/PF 50 MCG/ML VIAL ONE (17:35)
[2022-10-17] MEDS ORDERED: PROPOFOL 60 ML ONE (17:50)
[2022-10-17 18:00] LABS: INR 0.87 (0.83-1.09)
[2022-10-17 18:03] LABS: ACTIVATED PTT 26.3 SECONDS (25.2-36.5)
[2022-10-17 21:00] LABS: CORD BASE EXCESS -2.9 mmol/L (0-2); CORD HCO3 22.1 mmHg (20-29); CORD PCO2 39.3 mmHg (30-78); CORD pH 7.368 (7.14-7.44)
[2022-10-17 21:01] LABS: CORD PCO2 56.9 mmHg (30-78); CORD pH 7.225 (7.14-7.44)
[2022-10-17] MEDS ORDERED: SIMETHICONE 80 MG TAB.CHEW (FP) PO PRN (21:17)
[2022-10-17] MEDS ORDERED: ACETAMINOPHEN 325 MG TABLET (FP) PO PRN (21:17)
[2022-10-17] MEDS ORDERED: IBUPROFEN 800 MG/8 ML IJ IVPB PRN (21:17)
[2022-10-17] MEDS ORDERED: WITCH HAZEL 50% (TUCKS) 40 PAD/JAR PAD TP PRN (21:17)
[2022-10-17] MEDS ORDERED: IBUPROFEN 600 MG TABLET (FP) PO PRN (21:17)
[2022-10-17] MEDS ORDERED: METHYLERGONOVINE MALEATE 0.2 MG/1 ML AMP IM PRN (21:17)
[2022-10-17] MEDS ORDERED: BENZOCAINE 20% 57 GM BOTTLE TP PRN (21:17)
[2022-10-17] MEDS ORDERED: OXYTOCIN 20 UNITS in 0.9% NS 20 UNIT/1,000 ML INFUS.BAG IV ONE (23:12)
[2022-10-17] MEDS: OXYTOCIN 20 UNITS in 0.9% NS 20 UNIT/1,000 ML INFUS.BAG IV SCH (23:15)
[2022-10-18] MEDS: CEFAZOLIN 1 GM in DEXTROSE 5%-WATER - 50 ML IVPB SCH ×3 (01:49→18:04)
[2022-10-18] MEDS: OXYTOCIN 20 UNITS in 0.9% NS 20 UNIT/1,000 ML INFUS.BAG IV SCH (06:58)
[2022-10-18] MEDS: LEVOTHYROXINE NA 25 MCG TABLET (FP) PO SCH (07:04)
[2022-10-18] MEDS: ENOXAPARIN NA (PORCINE) 40 MG/0.4 ML DISP.SYRIN SQ SCH (09:06)
[2022-10-18] MEDS: PRENATAL VITAMINS W/ FOLIC ACID TABLET (FP) PO SCH (09:06)
[2022-10-18] MEDS ORDERED: oxyCODONE HCL 5 MG TABLET PO PRN ×2 (09:17)
[2022-10-18 09:24] LABS: BASO % 0.1 % (0-2.0); HEMATOCRIT 35.8 % (32.4-45.2); LYMPH % 7.3 % (8-40); MCH 29.7 pg (25.7-33.7); MCHC 33.4 g/dl (32.0-36.0); MEAN CELL VOLUME 88.9 fl (80-96); MEAN PLT VOLUME 8.2 fl (7.5-11.1); MONO % 3.7 % (3.8-10.2); NEUT % 88.9 % (42.8-82.8); PLATELET COUNT 277 10^3/uL (134-434); RBC 4.03 M/mm3 (3.60-5.2); RDW 13.3 % (11.6-15.6); WHITE BLOOD COUNT 14.1 K/mm3 (4.0-10.0)
[2022-10-18] MEDS ORDERED: DIPHTH,PERTUSS(ACELL),TET 0.5 ML DISP.SYRIN IM ONE (10:00)
[2022-10-18] MEDS: NIFEdipine E.R. 30 MG TABLET PO SCH (14:51)
[2022-10-18] MEDS ORDERED: BISACODYL 10 MG SUPP.RECT RC PRN (21:17)
[2022-10-19 02:21] VITALS: RESP 16
[2022-10-19] MEDS: ENOXAPARIN NA (PORCINE) 40 MG/0.4 ML DISP.SYRIN SQ SCH (09:46)
[2022-10-19] MEDS: PRENATAL VITAMINS W/ FOLIC ACID TABLET (FP) PO SCH (09:46)
[2022-10-19] MEDS: NIFEdipine E.R. 30 MG TABLET PO SCH (09:47)
[2022-10-19] MEDS ORDERED: DIPHTH,PERTUSS(ACELL),TET 0.5 ML DISP.SYRIN IM ONE (10:15)
[2022-10-19] MEDS: LEVOTHYROXINE NA 25 MCG TABLET (FP) PO SCH (10:58)
[2022-10-19 11:33] VITALS: TEMP 97.9
[2022-10-19 11:34] VITALS: BP 156/95; PULSE 77
== END 2022-10-19 13:25 | disposition home or self-care (01) | DRG 786 ==
LOC: JDEL 13:35 → JLDR 15:30 → J3W 23:11
PROVIDERS: ADMIT Obstetrics & Gynecology; ATTEND Obstetrics & Gynecology
PROC: 10D00Z1 Extraction of Products of Conception, Low, Open Approach (ICD-10-PCS; principal; 2022-10-17)
DX: O34.211 Maternal care for low transverse scar from previous cesarean delivery (principal); O60.14X0 Preterm labor third trimester with preterm delivery third trimester, not applicable or unspecified; O14.04 Mild to moderate pre-eclampsia, complicating childbirth; O99.214 Obesity complicating childbirth; E66.9 Obesity, unspecified; Z37.0 Single live birth; Z3A.36 36 weeks gestation of pregnancy
CPT/HCPCS: 36415; 36600; 59025; 80053; 81003; 82803; 84550; 85025; 85027; 85610; 85730; 86780; 86850; 86900; 86901; 88307-TC; 90715; 96372; C9803-CS; U0003; U0005